=== PATIENT | female | born 1995 | race Two or more races ===

== ENCOUNTER 2018-08-29 09:00 | Emergency (ER) | payer OTHER ==
[~2018-08-29] VITALS: Ht 167.6 cm; Wt 127.3 kg
[2018-08-29] MEDS ORDERED: dexamethasone sod phosphate 10mg/ml inj IV STA (09:17)
[2018-08-29] MEDS ORDERED: CefTRIAXone 2gm/D5W 50ml 50 ML IV ONE (09:20)
--- NOTE | 2018-08-29 09:36 | NUR ---
BLOOD CULTURES WERE DRAWN PRIOR TO START OF ANTIBIOTICS
[2018-08-29 09:46] LABS: BASOPHILS # (AUTO) 0.1 X10'3 (0-0.2); BASOPHILS % (AUTO) 0.4 % (0-1); EOSINOPHILS # (AUTO) 0.2 X10'3 (0-0.9); EOSINOPHILS % (AUTO) 1.2 % (0-6); HEMATOCRIT 42.3 % (35.0-45.0); HEMOGLOBIN 14.2 g/dl (12.0-16.0); LYMPHOCYTES # (AUTO) 2.1 X10'3 (1.1-4.8); LYMPHOCYTES % (AUTO) 14.4 % (21-51); MEAN CORPUSCULAR HEMOGLOBIN 26.8 PG (27.0-31.0); MEAN CORPUSCULAR HGB CONC 33.5 g/dL (33.0-36.5); MEAN PLATELET VOLUME 8.8 FL (7.4-10.4); MONOCYTES # (AUTO) 0.9 X10'3 (0-0.9); MONOCYTES % (AUTO) 6.2 % (2-12); NEUTROPHILS # (AUTO) 11.2 X10'3 (1.8-7.7); NEUTROPHILS % (AUTO) 77.8 % (42-75); PLATELET COUNT 448 X10'3 (140-440); RED BLOOD COUNT 5.29 X10'6 (4.20-5.60); RED CELL DISTRIBUTION WIDTH 13.6 % (11.5-14.5); WHITE BLOOD COUNT 14.4 X10'3 (4.5-11.0)
[2018-08-29 09:58] LABS: ALANINE AMINOTRANSFERASE 44 U/L (12-78); ALBUMIN 3.5 G/DL (3.4-5.0); ALBUMIN/GLOBULIN RATIO 0.7 (1.1-1.5); ALKALINE PHOSPHATASE 86 IU/L (46-116); ANION GAP 11 (8-16); ASPARTATE AMINO TRANSFERASE 24 U/L (10-37); BILIRUBIN,TOTAL 0.4 MG/DL (0.1-1.0); BLOOD UREA NITROGEN 6 MG/DL (7-18); BUN/CREATININE RATIO 8.6 (6.6-38.0); CHLORIDE 99 MMOL/L (99-107); GLUCOSE 103 MG/DL (70-104); POTASSIUM 3.8 MMOL/L (3.5-5.1); SODIUM 138 MMOL/L (135-145); TOTAL CARBON DIOXIDE 28.3 MMOL/L (24-32); TOTAL PROTEIN 8.8 G/DL (6.4-8.2); eGFR > 90 ML/MIN
[2018-08-29] MEDS ORDERED: LIDOcaine Viscous 15ml cup MM ONE (10:30)
[2018-08-29 10:43] LABS: URINE HCG NEGATIVE (NEG)
[2018-08-29] MEDS ORDERED: iohexol 300mg/ml 100ml inj. ONE (10:44)
[2018-08-29 12:35] VITALS: BP 149/84
[2018-08-29] MEDS ORDERED: AMOX-580 PO (13:20)
== END 2018-08-29 14:34 | disposition home or self-care (01) ==
LOC: ER 09:00
DX: J36 Peritonsillar abscess (principal)
CPT/HCPCS: 36415; 70491; 80053; 81025; 85025; 96365; 96375; 99284; J0696; J1100; Q9967